=== PATIENT | female | born 1950 | race Caucasian/White ===

== ENCOUNTER → 2017-05-17 | Outpatient (CLI) | payer MEDICARE, BC ==
[~2017-05-17] MED LIST: ALBUTEROL2.5 MG/0.5 INH; ANTIVERT25 MG PO; ATROVENT I0.5 MG/2.5 INH; CARAFATE1 GM PO; CLARITIN10 MG PO; COREG25 MG PO; COZAAR25 MG PO; COZAAR50 MG PO; DEMADEX20 MG PO; FLAGYL250 MG PO; FLONASE 50 MCG/16 GM NOSE; K-TAB ER20 MEQ PO; LANTUS (IN100 UNIT/M SUB-Q; LASIX40 MG PO; MAG-OX-400(241400 MG PO; MIRALAX17 GM PO; MORPHINE SULFAT15 M1 PO; NEURONTIN100 MG PO; NORVASC5 MG PO; NOVOLIN-N100 UNIT/M SUB-Q; OMNICEF 300MG300 MG PO; OXYGEN M-15 INH; PRAVACHOL80 MG PO; PRILOSEC20 M1 PO; PROTONIX40 MG PO; PROVENTIL OR V6.7 GM INH; THEODUR200 MG PO; TYLENOL EXTRA500 MG PO; ULTRAM50 MG PO; ZANTAC (NON-FO150 MG PO; ZOFRAN ODT 4 MG4 MG SL; ZOFRAN4 MG/5 ML PO; ZOLOFT50 MG PO; [UNRECOGNIZED DRUG - OTHER] PO
== END ==
LOC: LFPA 17:13
DX: E11.9 Type 2 diabetes mellitus without complications (principal); R10.9 Unspecified abdominal pain

== ENCOUNTER 2017-06-01 02:59 | Inpatient (IN) | payer MEDICARE, BC ==
[~2017-06-01] VITALS: Ht 170.2 cm; Wt 121.4 kg
--- NOTE | ~2017-06-01 | CON ---
PATIENT'S NAME: JACQUELINE OCAMPO [facility] AGE: 66 Y [address] ROOM: [address] [place], [place] [address] LOCATION: [facility] ADMIT DATE: 06/01/2017 Consultation DISCHARGE DATE: FAMILY PHYSICIAN: PHYSICIAN, UNKNOWN ATTENDING PHYSICIAN: IRENE GARCES REFERRING PHYSICIAN: WILLY MENJIVAR MD CHIEF COMPLAINT: Right thigh and knee pain. HISTORY OF PRESENT ILLNESS: Ms Ocampo is a 66-year-old, female who presented to the [facility] last night with right thigh and knee pain. The patient reports that at approximately 9:00 p.m. last night, she was getting out of the shower and stepped onto a wet tiled floor. She sustained a fall at that time. She complained of immediate right distal thigh and knee pain. She reported inability to bear weight through the limb. She reported the pain as being a 10/10 and severe. She reported crawling to the telephone and called emergency services. She was transferred to the [facility], where she was seen and evaluated. She was diagnosed with a distal femur fracture. She was transferred from that hospital to the [facility] for definitive orthopedic care. Aggravating factors at that time include palpation of the thigh, manipulation of the limb, or attempted weightbearing. Alleviating factors include rest, ice, and immobilization with a knee immobilizer. I was consulted by the emergency room physician at the hospital and I requested that the patient be admitted and medically optimized and cleared for surgery. I have also requested a CT scan of the distal femur. Currently, the patient denies any constitutional symptoms such as fever, chills, or night sweats. She also denies any dizziness, chest pain, shortness of breath, blurred vision, nausea, vomiting, or diarrhea. REVIEW OF SYSTEMS: A 10-point review of systems was otherwise mentioned above in the HPI. The rest are negative. PAST MEDICAL HISTORY: COPD; diabetes mellitus type 2, on insulin; hypertension; chronic kidney insufficiency; congestive heart failure; hypercholesterolemia; and right clubfoot. PAST SURGICAL HISTORY: The patient reports that at , she had surgery on her right foot for history of clubfoot that was corrected surgically. She has had no difficulty with this since childhood. FAMILY HISTORY: PATIENT'S NAME: JACQUELINE OCAMPO [facility] AGE: 66 Y [address] ROOM: [id number] [place], [place] [address] LOCATION: [facility] ADMIT DATE: 06/01/2017 Consultation DISCHARGE DATE: FAMILY PHYSICIAN: PHYSICIAN, UNKNOWN ATTENDING PHYSICIAN: IRENE GARCES Includes hypertension on paternal both maternal sides of the family. SOCIAL HISTORY: The patient denies tobacco or illicit drug use. She consumes alcohol socially. MEDICATIONS: Currently being reconciled. PHYSICAL EXAMINATION: VITAL SIGNS: Pending. HEENT: Normocephalic and atraumatic. Extraocular movements are intact. PERRLA. Moist mucous membranes. Oropharyngeal airway is clear. NECK: Supple. Trachea is in midline. CARDIOVASCULAR: Regular rate and rhythm. CHEST: Normal symmetric respirations observed bilaterally. ABDOMEN: Soft, nontender, and nondistended. MUSCULOSKELETAL: Right lower extremity: Focal examination of the patient's right lower extremity reveals she is grossly neurologically intact distally. Compartments of thigh, leg, and foot are soft. There is swelling at the level of the knee and distal thigh and tenderness to palpation. There is gross deformity with the leg at the knee externally rotated relative to the proximal thigh. There is a palpable dorsalis pedal and radial pulses. There is good capillary refill in the toes. Evidence of a surgical correction to a previous right clubfoot. IMAGING: Plain radiographs of the right femur reveal evidence of a spiral comminuted distal femur fracture that is rotated and angulated. A CT scan of the right femur reveals evidence of a spiral supracondylar femur fracture that extends down to the level of the femoral condyle. There does not appear to be an intra-articular involvement. LABORATORY VALUES: CBC includes a hemoglobin of 15.6, hematocrit of 47.4, white blood cell count of 16.4, and platelet count of 218. Chem-7: Sodium 141, potassium 4.0, chloride 103, CO2 32, BUN 28, creatinine 1.6, glucose 175. The patient reported hemoglobin A1c of 7.5. Coagulation profile is PT of 10.6, INR of 1.01, and PTT of 26. IMPRESSION: 1. Right spiral supracondylar fracture of the femur with displacement and angulation. 2. Diabetes mellitus, on insulin. PATIENT'S NAME: OCAMPO JACQUELINE Miryam [facility] AGE: 66 Y [address] ROOM: [address] [place], [place] [address] LOCATION: G3 ADMIT DATE: 06/01/2017 Consultation DISCHARGE DATE: FAMILY PHYSICIAN: PHYSICIAN, MELINDA ATTENDING PHYSICIAN: IRENE GARCES 3. Hypertension. 4. Chronic obstructive pulmonary disease. 5. Congestive heart failure. 6. Chronic kidney insufficiency. PLAN: I had a long discussion with the patient today regarding her right lower extremity. I am recommending an open reduction and internal fixation of her right supracondylar femur fracture with plate and screw construct. We discussed the risks, benefits, and alternatives of pursuing surgical intervention with the patient in detail. We discussed the risks of anesthesia, infection, bleeding, and/or injury to neurovascular structures. The patient has a host of concomitant medical comorbidities, that has been cleared by the hospitalist. She is certainly at high risk for postoperative complication despite this. Certainly, under the current circumstance, I would recommend treating this nonoperatively as the outcome would be poor. The patient is independent ambulator at baseline and a successful operation would return her to this at baseline. The patient will be nonweightbearing on the right lower extremity for now. A knee immobilizer is provisionally placed to hold the leg still. A Ortiz catheter has also been placed. Pain control will be prescribed. DVT prophylaxis will be mechanical for now. We will plan for surgery as soon as this afternoon. MD DIANNA MONTEIRO/colin /[id number] d: 06/01/1745 t: 06/01/17 0921, CONSULTATION REPORT
--- NOTE | ~2017-06-01 | DS ---
PATIENT'S NAME: JACQUELINE RAI [facility] AGE: 66 Y [address] ROOM: [address] [place], [place] [address] LOCATION: [facility] ADMIT DATE: 06/01/2017 Discharge Summary DISCHARGE DATE: 06/04/2017 FAMILY PHYSICIAN: Ariadna King MD ATTENDING PHYSICIAN: Rodolfo Judd DISCHARGE DIAGNOSES: 1. Right femur fracture, status post open reduction and internal fixation. 2. Essential hypertension. 3. Diabetes mellitus, type 2. 4. Acute kidney injury on chronic kidney disease. 5. Gastroesophageal reflux disease. 6. Chronic obstructive pulmonary disease. 7. Chronic hypoxic respiratory failure. CONSULTING PHYSICIAN: Dr. Krause. HOSPITAL COURSE: Please refer to admitting history and physical as dictated by Dr. Judd. Briefly, the patient was admitted to [facility] after sustaining a fall while at home. She was found to have a right femur fracture. Dr. Krause was consulted for her femur fracture. She was found to have an acute kidney injury with a creatinine of 1.6. Her diuretics were held. She was given IV fluids. This did gradually improve to normal. On the day of discharge, her creatinine was 0.9. The patient's O2 requirements remained stable on 2 L. Her blood sugars were managed with her home NPH as well as sliding scale insulin. Postoperatively, she was made toe-touch weightbearing to the right lower extremity in a knee immobilizer. PT and OT both followed the patient postoperatively. Her hemoglobin remained stable. She did have noted constipation. She was given a Dulcolax suppository which did resolve. Her pain was well controlled with Perrin. On 06/04/2017, it was felt as though she was stable to be transferred to [facility] for further restorative cares. LABORATORY DATA: Sodium remained stable; potassium 4.0 to 4.4; BUN on admit 28, prior to discharge 10; creatinine on admit 1.6, prior to discharge 0.9; total bilirubin 0.9; AST 55; ALT 51; GFR 33 on admit, 67 prior to discharge; and magnesium 2.4. CPK 120, CK-MB 1.1, and troponin is less than 0.040. ProBNP 476. Pre-albumin 38. Hemoglobin A1c is 7.7. WBCs on admit 16.4, prior to discharge 10.3; hemoglobin 12.0 to 15.6; and platelets are 167,000. UA leukocytes 25, nitrites negative, wbc's 0-2, bacteria few, and epithelials 0-2. Radiology Reports: Chest x-ray done on 06/01/2017 shows cardiac silhouette enlargement though accentuated by suboptimal inspiration, no focal infiltrate, pleural effusion, or pneumothorax. Right femur x-ray shows a displaced PATIENT'S NAME: JACQUELINE RAI [facility] AGE: 66 Y [address] ROOM: [address] [place], [place] [address] LOCATION: [facility] ADMIT DATE: 06/01/2017 Discharge Summary DISCHARGE DATE: 06/04/2017 FAMILY PHYSICIAN: Ariadna King MD ATTENDING PHYSICIAN: Rodolfo Judd oblique distal right femur fracture. DISCHARGE INSTRUCTIONS: The patient will be discharged to [facility] bed. Dr. Kan to follow. Followup appointment with Dr. Krause in 2 weeks. Diet; ADA. Weightbearing; toe-touch weightbearing, right lower extremity in a knee immobilizer. Oxygen as needed to keep sats greater than 90% on 2 L chronically, titrate as needed. Accu-Cheks a.c. and bedtime. BMP on 06/06/2017. Urinary catheter, none. Rehabilitation potential good. Discharge potential is good. Change right leg bandage with Xeroform, 4x4 gauze, cast padding, and Riki wrap every 3 days. DISCHARGE MEDICATIONS: 1. Norvasc 5 mg p.o. daily. Hold if systolic blood pressure is less than 110. 2. Coreg 25 mg p.o. twice daily. Hold if systolic blood pressure is less than 110 or heart rate less than 60. 3. Colace 100 mg p.o. twice daily. 4. Lovenox 40 mg subcutaneous daily until 06/16/2017. 5. Flonase 2 puffs daily. 6. Neurontin 100 mg p.o. t.i.d. 7. Novolin N 25 units subcutaneous at bedtime. 8. Novolin N 30 units q.a.m. 9. Protonix 40 mg p.o. twice daily. 10. Pravachol 80 mg p.o. at bedtime. 11. Zoloft 75 mg p.o. daily. 12. Tylenol 500 mg p.o. every 4 hours as needed for pain. 13. Mylanta 30 mL p.o. 4 times daily p.r.n. upset stomach. 14. Glucagon 1 mg subcutaneous for hypoglycemia. 15. Glucose 16 g p.o. for hypoglycemia. 16. Claritin 10 mg p.o. twice daily p.r.n. allergies. 17. Milk of magnesia 30 mL p.o. p.r.n. constipation. 18. Zofran 4 mg sublingual 4 times daily p.r.n. nausea. 19. MiraLAX 17 g p.o. daily p.r.n. 20. Potassium 40 mEq on Wednesday, Wednesday, and Wednesday for hypokalemia. 21. Albuterol 1 puff every 4 hours as needed for shortness of breath. 22. Albuterol inhaler 4 times daily p.r.n. 23. Demadex 40 mg p.o. daily. Hold if systolic blood pressure is less than 120. 24. Oxygen. 25. Cozaar 50 mg p.o. twice daily. 26. Perrin 5/325, 1 or 2 tablets every 4 to 6 hours as needed for pain. Thank you for allowing us to participate in the care of this patient as she has been hospitalized at [facility]. PATIENT'S NAME: JACQUELINE RAI [facility] AGE: 66 Y [address] ROOM: [place] [address] LOCATION: [facility] ADMIT DATE: 06/01/2017 Discharge Summary DISCHARGE DATE: 06/04/2017 FAMILY PHYSICIAN: Ariadna King MD ATTENDING PHYSICIAN: Rodolfo Judd BRUNO FRANCIS APRN FOR MD ANNY PANDYA/colin /[id number] d: 06/05/17 0106 t: 06/09/17 1116, DISCHARGE SUMMARY
--- NOTE | ~2017-06-01 | ER ---
PATIENT'S NAME: JACQUELINE RAI [facility] AGE: 66 Y [address] ROOM: [place] [address] LOCATION: [facility] ADMIT DATE: 06/01/2017 ER/Outpatient Report DISCHARGE DATE: FAMILY PHYSICIAN: PHYSICIAN, UNKNOWN ATTENDING PHYSICIAN: IRENE GARCES Time of Arrival: 0303 hours Time Seen: 0315 hours HISTORY OF PRESENT ILLNESS: This is a 66-year-old female with multiple medical problems. She is in with complaint of a femur fracture. She was initially seen at the hospital in [place] and was transferred for further evaluation and treatment. PAST MEDICAL HISTORY: Significant for peripheral neuropathy, congestive heart failure, insulin- dependent diabetes, COPD, hypertension. She has Charcot joints in her ankles and feet. She has had multiple previous orthopedic procedures performed by Dr. Arana. CURRENT MEDICATIONS: See list. REVIEW OF SYSTEMS: She states she has had a slight cough for the past few days. All other systems are negative. SOCIAL HISTORY: She is a nonsmoker. She lives in [place]. PHYSICAL EXAMINATION: GENERAL: Alert, cooperative female, in no acute distress. VITAL SIGNS: Stable. SKIN: Warm and dry. Color is normal. She was mildly hypertensive. HEAD, EARS, EYES, NOSE, AND THROAT: Normal. NECK: Supple. HEART AND LUNGS: Normal. ABDOMEN: Soft. EXTREMITIES: She had swelling and tenderness noted of her right thigh. NEURO: Distal neurovascular function is intact. LABORATORY DATA AND X-RAYS: Radiographic examination confirmed an oblique fracture of the distal right femur. Tib-fib was negative for acute injury. [place] [id number]. Urinalysis was negative. Metabolic panel revealed PATIENT'S NAME: JACQUELINE RAI [facility] AGE: 66 Y [address] ROOM: [address] [address] LOCATION: [facility] ADMIT DATE: 06/01/2017 ER/Outpatient Report DISCHARGE DATE: FAMILY PHYSICIAN: PHYSICIAN, UNKNOWN ATTENDING PHYSICIAN: IRENE GARCES elevated glucose of 175. BUN slightly elevated at 28. Creatinine slightly elevated at 1.6. AST slightly elevated at 55. Dr. Garces was called, arrived promptly, evaluated the patient, made arrangements to admit the patient. The orthopedist was consulted. ASSESSMENT: 1. Oblique fracture of the right distal femur. 2. Multiple medical problems including diabetes, congestive heart failure, chronic obstructive pulmonary disease, appeared to be under reasonably good control. PLAN: Admit for medical stabilization and surgical management of her fracture. MD EHSAN TREVIÑO/greggl /[id number] d: 06/01/17 0548 t: 06/17/17 0550, OUTPATIENT REPORT
--- NOTE | ~2017-06-01 | HP ---
PATIENT'S NAME: JACQUELINE RAI [facility] AGE: 66 Y [address] ROOM: [id number] [place], [place] [address] LOCATION: G3N ADMIT DATE: 06/01/2017 History & Physical DISCHARGE DATE: FAMILY PHYSICIAN: PHYSICIAN, UNKNOWN ATTENDING PHYSICIAN: IRENE GARCES DATE OF SERVICE: CHIEF COMPLAINT: Right hip pain, status post mechanical fall. HISTORY OF PRESENT ILLNESS: This is a 66-year-old female who says that she was at shower last night and when she stepped out of the shower, the floor was wet and she accidentally slipped and fell on the ground. She fell backwards sitting her gluteus was on the ground without hitting her head and there was no loss of consciousness or any head trauma. After the fall, she had this pain in her right hip, and she could not get up. The patient was able to cross to use the telephone and called her , her called her son and her son came to the house and call the ambulance, and the patient was brought to the outside facility in [place] and the patient was found to have a right hip fracture and the patient was subsequently sent over here for further care. At baseline, the patient is functional by herself at home and however, she does complain of dyspnea on exertion when she walked one block. This has been chronic, and she says that this has not worsened much compared to her usual baseline. She denies any chest pain on exertion or at rest. She also denies any dyspnea at rest. She can perform house chores without chest pain or shortness of breath. Her METS score is around 4. The patient denies any prior myocardial infarction or atrial fibrillation or any pulmonary or surgery in the past. Her current complaint is right hip pain after the fall. She denies any chest pain or dyspnea at rest at the moment. The patient is also not on any blood thinner at home. REVIEW OF SYSTEMS: As mentioned in the history of present illness. All other systems were reviewed and were negative except those mentioned in the history of present illness. PAST MEDICAL HISTORY: 1. History of congestive heart failure based on the most recent [facility]horacic [facility] the [facility] 2013. At that time, it showed grade 3 diastolic dysfunction with EF of 40% to 50%. 2. Hypertension. 3. Hyperlipidemia. PATIENT'S NAME: JACQUELINE RAI [facility] AGE: 66 Y [address] ROOM: [id number] [place], [place] [address] LOCATION: [facility] ADMIT DATE: 06/01/2017 History & Physical DISCHARGE DATE: FAMILY PHYSICIAN: PHYSICIAN, UNKNOWN ATTENDING PHYSICIAN: IRENE GARCES 4. COPD, on 2 L nasal cannula 24/05. 5. Asthma. 6. Gastroesophageal reflux disease. 7. Diabetes, type 2. 8. Flatfeet. ALLERGIES: PENICILLIN, QUINOLONE, ERYTHROMYCIN, LEVAQUIN, AND ROSUVASTATIN . HOME MEDICATIONS: 1. Tylenol 500 mg p.o. every 4 hours p.r.n. for pain or fever. 2. Albuterol inhalation one puff every 4 hours p.r.n. for shortness of breath or wheezing. 3. Albuterol inhalation 2.5 mg inhalation 4 times daily p.r.n. for shortness of breath or wheezing. 4. Aluminium and magnesium hydroxide simethicone 30 mL p.o. four times daily p.r.n. for GI upset. 5. Amlodipine 5 mg p.o. daily. 6. Coreg 25 mg p.o. b.i.d. 7. Fluticasone two puffs each nose daily. 8. Gabapentin 100 mg p.o. t.i.d. 9. Insulin NPH 53 units subcu every night at bedtime. 10. Insulin NPH 63 units subcu every morning. 11. Claritin 10 mg p.o. b.i.d. p.r.n. for allergy. 12. Losartan 50 mg p.o. daily. 13. Morphine sulfate 15 mg p.o. every night at bedtime p.r.n. for pain. 14. Zofran 4 mg p.o. every 6 hours p.r.n. for nausea. 15. Oxygen 2 L nasal cannula 24/05. 16. Protonix 40 mg p.o. b.i.d. 17. MiraLAX 17 g p.o. daily p.r.n. for constipation. 18. Potassium chloride 40 mEq p.o. every Wednesday, Wednesday, and Wednesday. 19. Pravastatin 80 mg p.o. every night at bedtime. 20. Zoloft 75 mg p.o. daily. 21. Torsemide 40 mg p.o. daily. SOCIAL HISTORY: The patient denies any cigarette smoking, but she got COPD from secondhand smoker from her father who was a heavy smoker for many years. The patient denies any alcohol or any illegal drug use. The patient lives at home by herself. PAST SURGICAL HISTORY: 1. Status post appendectomy. 2. Status post cholecystectomy. 3. Status post left wrist surgery in the past. PATIENT'S NAME: JACQUELINE RAI [facility] AGE: 66 Y [address] ROOM: [id number] [place], [place] [address] LOCATION: [facility] ADMIT DATE: 06/01/2017 History & Physical DISCHARGE DATE: FAMILY PHYSICIAN: PHYSICIAN, UNKNOWN ATTENDING PHYSICIAN: IRENE GARCES 4. Status post right tarsal tunnel release. 5. Ostectomy of the medial and the mid foot at left in the past. FAMILY HISTORY: Father had hypertension and lung cancer. He was a heavy smoker. He at old age. Mother had hypertension. PHYSICAL EXAMINATION: VITAL SIGNS: At the time of my evaluation, temperature 98.5, heart rate 63, respirations 13, blood pressure 116/60, saturation 94% on 2 L nasal cannula. GENERAL APPEARANCE: Alert and oriented x3. Currently, in no acute distress. HEENT: Pupils equal, round, and reactive to light. Extraocular muscles intact. Anicteric sclerae. Nasal turbinates are normal bilaterally. Moist oral mucosa. NECK: No JVD. CARDIOVASCULAR: Regular rate and rhythm. No murmur, no rubs, no gallops. Normal S1, S2. RESPIRATORY: Some faint crackle on the right lower lung base. Otherwise, no rhonchi, no wheezing, no rales. Chest wall nontender to palpation. ABDOMEN: Obese, soft, mild pain in the right upper quadrant which is chronic for many years. It has not changed. No mass. Bowel sounds present. No abdominal rigidity. Bowel sounds present. Soft. Nondistended. EXTREMITIES: Mild pitting edema +1 in bilateral lower extremity. This is much better than her usual baseline. Dorsalis pedis pulse and posterior tibialis pulse present +2 bilaterally in both feet. SKIN: No cyanosis. She has some healed-looking skin ulcer in both feet. There is no drainage and the ulcer looks healed and dry. NEUROLOGICAL: Grossly nonfocal except that the right lower extremity is not examined about her strength given that she has a fracture. Sensation decreased in both feet. This is chronic for her due to her peripheral neuropathy from her diabetes, type 2. Otherwise unremarkable. LABORATORY DATA: CPK 120, troponin less than 0.04. ProBNP 476. White blood cells 16.4, hemoglobin 15.6, hematocrit 47.4, platelet 218, glucose 175, BUN 28, creatinine 1.6. Sodium 142, potassium 4.0, chloride 103, CO2 of 32, calcium 8.8, total protein 6.9, albumin 3.4, AST 55, ALT 51, alkaline phosphatase 122, total bilirubin 0.9, anion gap 11, globulin 3.5. INR 1.01. PTT 26. Urinalysis show 25 leukocytes, negative nitrite, 0-2 white blood cells, and a few bacteria. GFR 33. CK-MB 1.1. Pre-albumin 38. IMAGING STUDIES: CT of the right proximal lower extremity currently is being taken and the report is pending. PATIENT'S NAME: JACQUELINE RAI [facility] AGE: 66 Y [address] ROOM: [place] [address] LOCATION: [facility] ADMIT DATE: 06/01/2017 History & Physical DISCHARGE DATE: FAMILY PHYSICIAN: PHYSICIAN, UNKNOWN ATTENDING PHYSICIAN: IRENE GARCES Chest x-ray on admission, the official report is pending based on my review. No obvious infiltrate. However, please follow up with official report in the morning. X-ray of the right lower extremity show right femur fracture. EMERGENCY ROOM COURSE: The patient was transferred from [place], [place] to our facility and the patient will be admitted for orthopedic care for right hip fracture. ASSESSMENT AND PLAN: 1. Regarding her right femur fracture status post mechanical fall: Defer to Orthopedic Surgery for orthopedic care. 2. Regarding her preoperative medical evaluation for noncardiac surgery: Orthopedic surgery is considered as an intermediate risk surgery. From the guideline of the preoperative medical evaluation for noncardiac surgery, the patient currently does not have any active cardiac contraindication that will warrant further study before the orthopedic surgery. However, given that her METS score is around 4 and also however, due to her multiple medical comorbidities and her age including hypertension and diabetes and history of systolic and diastolic congestive heart failure as well as COPD on 2 L of oxygen nasal cannula 24/05 and asthma; the patient has a high risk for perioperative and postoperative cardiopulmonary complications. The complications could include but not limited to heart failure during the fluid hydration, during surgery, and may remain intubated in ICU after surgery due to inability to extubate due to her pulmonary status as well as other cardiopulmonary complications due to multiple comorbidities. However as mentioned before, from the guideline for preoperative medical evaluation, currently the patient does not have any active cardiac contraindication that will require any additional testing before going for the Orthopedic Surgery. I have explained in detail and at length to the patient and the patient's son at the bedside regarding the possibility of this possible complications and the patient, the patient's son are aware of this possible complication and agreed to proceed with surgery. 3. Regarding her acute kidney injury: This is from decreased oral intake, given that her urine looks concentrated and also because she has hemoconcentration on the blood work and BUN and both creatinine are elevated and due to her history of recent decreased oral intake, this is from the use of a torsemide that caused the acute kidney injury. For this reason, I am going to give her gentle IV fluid hydration with normal saline at 60 mL/h to hydrate her gently given that she has history of congestive heart failure, we do not want to put her into heart failure. I will check another renal panel in the morning to make sure the kidney function is improving. She has a Ortiz; therefore, we will continue with PATIENT'S NAME: JACQUELINE RAI [facility] AGE: 66 Y [address] ROOM: [place] [address] LOCATION: [facility] ADMIT DATE: 06/01/2017 History & Physical DISCHARGE DATE: FAMILY PHYSICIAN: PHYSICIAN, UNKNOWN ATTENDING PHYSICIAN: IRENE GARCES in's and out's and also urine output. Further plan will depend on clinical course and of course, I will hold the home medication that can worsen the kidney function which include losartan and torsemide. Further plan will depend on clinical course. 4. Regarding her history of congestive heart failure, systolic and diastolic type: Currently, the patient is over-diuresed as mentioned before in #3. For this reason, I will continue oxygen nasal cannula to titrate to keep the saturation more than 92% as well as IV fluid hydration as mentioned before. Further plan will depend on clinical course. Her most recent echo was done on 2013. At that time, it showed grade 3 diastolic dysfunction with EF of 40% to 50%. 5. Regarding her hypertension: Continue home medication with holding parameters which includes amlodipine and Coreg. I will hold the losartan due to the acute kidney injury. 6. Regarding her diabetes, type 2: We will check her hemoglobin A1c and as well we will continue with the home regimen. However, I will cut down by half which includes insulin NPH 53 units every night, I will cut down to 25 units every night and also insulin NPH 63 units every morning, I will cut down to 30 units every morning. We can titrate as necessary. In the meantime, continue with subcu regular insulin q.6 hours while n.p.o. low dose and titrate as necessary. N.p.o. for now. Pending orthopedic surgery. 7. Regarding her chronic obstructive pulmonary disease: She has 2 L at home nasal cannula 24/05. That is why she is at a high pulmonary complication during and after surgery, given that there is a possibility that she cannot be extubated successfully after surgery. The patient understands this risk and understands that she may end up in ICU intubated until appropriate to be extubated. I will give her DuoNeb right now one dose and then q.4 hours p.r.n. Continue her home albuterol p.r.n. as ordered. Currently, she is not in exacerbation, but the DuoNeb will optimize even more her already affected lung function at baseline. 8. Regarding her asthma: I will set a chronic obstructive pulmonary disease management as above. 9. Regarding her hyperlipidemia: Continue home statin. 10. Regarding her gastroesophageal reflux disease: Continue the home medication for acid reflux protection. 11. Regarding her diabetes, type 2: Check A1c. Continue home insulin regimen, but cut off by half the long-acting intermediate acting NPH and in addition add subcutaneous regular insulin q.6 hours while n.p.o., mild dose and titrate as necessary. 12. Regarding her foot ulcers on both feet: They look heal and do not look infected. I do not think the wound care should be consulted given that there is not much to do for those healed ulcer. 13. She is a DNR, but not DNI. 14. DVT prophylaxis: Foot pump for now before the orthopedic surgery. PATIENT'S NAME: JACQUELINE RAI [facility] AGE: 66 Y [address] ROOM: [address] [address] LOCATION: [facility] ADMIT DATE: 06/01/2017 History & Physical DISCHARGE DATE: FAMILY PHYSICIAN: PHYSICIAN, UNKNOWN ATTENDING PHYSICIAN: IRENE GARCES Time spent in care on the day of admission 40 to 50 minutes was spent on chart review. The remainder of time was spent on interview and physical examination and going over the plan of care in detail with the patient and patient's son at the bedside. At this time also includes counseling. The counseling includes explaining all the possible cardiopulmonary complication during and after the surgery and all the risk that could happen during surgery due to her multiple comorbidities, and I addressed all the questions and concerns to their satisfaction. Further plan will depend on clinical course. IRENE GARCES MD CC/modl /[id number] D: 907 T: 100 HISTORY & PHYSICAL
--- NOTE | ~2017-06-01 | OR ---
PATIENT'S NAME: JACQUELINE OCAMPO [facility] AGE: 66 Y [address] ROOM: [place] [address] LOCATION: [facility] ADMIT DATE: 06/01/2017 OR/Procedure Report DISCHARGE DATE: FAMILY PHYSICIAN: PHYSICIAN, UNKNOWN ATTENDING PHYSICIAN: IRENE GARCES SURGEON: Kishor Krause MD UNDERWRITER [employer]ICITATION DIRECTOR: Gaston andre PA-C. DATE OF PROCEDURE: 06/01/2017 PREOPERATIVE DIAGNOSIS: Right spiral supracondylar fracture of the distal femur. POSTOP DIAGNOSIS: Right spiral supracondylar fracture of the distal femur. PROCEDURE: 1. Open reduction and internal fixation of right spiral supracondylar fracture of the distal femur. 2. Use of intraoperative fluoroscopy, less than 1 hour. ANESTHESIA: General endotracheal anesthesia. ESTIMATED BLOOD LOSS: 350 mL. FLUIDS: See Anesthesia report. TOURNIQUET: None. SPECIMEN: None. COMPLICATIONS: None. DISPOSITION: Stable in PACU. COUNTS: All counts correct. IMPLANTS: Include Synthes right distal femur periarticular locking plate and screws. INDICATIONS: Ms Ocampo is a 66-year-old female who underwent the noted procedures above. The risks, benefits, and alternatives pursuing surgical intervention were discussed with the patient in detail. She elected proceed with surgery. Anesthesia was consulted for their perioperative evaluation of the patient. I marked the right lower extremity indicating the correct surgical site. PATIENT'S NAME: JACQUELINE OCAMPO [facility] AGE: 66 Y [address] ROOM: [place] [address] LOCATION: [facility] ADMIT DATE: 06/01/2017 OR/Procedure Report DISCHARGE DATE: FAMILY PHYSICIAN: PHYSICIAN, UNKNOWN ATTENDING PHYSICIAN: IRENE GARCES DESCRIPTION OF PROCEDURE: The patient was brought from the holding area the operating room. A time-out was performed. General endotracheal anesthesia was administered. The patient was positioned supine on the operating room table. The right lower extremity was then prepped and draped in a sterile fashion. I turned my attention the right distal femur. I introduced intraoperative fluoroscopy. I identified the fracture site. I made a surgical incision, access the lateral aspect of the distal femur at the level of the knee. The skin incision was carried through skin, subcutaneous tissue, muscle fascia down to bone. I freed up the soft tissues off the distal femur. I identified the fracture site. With my assistant professor sculpture, Gaston Arana PA-C, we placed traction to perform provisional reduction. I confirmed this fluoroscopically. I subsequently introduced a plate to the lateral aspect of the femur. I pinned the plate both proximally and distally to achieve some provisional fixation. A López clamp was introduced at the level of the fracture site to reduce the plate to the bone and to bring the spiral fracture into a close proximity. I achieved a near anatomic reduction in both the AP and lateral planes. I then turned my attention to the distal aspect of the plate. I drilled for, measured, and placed a compression screw to compress the distal aspect of the plate to the lateral aspect of the distal femur. I did achieve good compression of the plate to the bone. I then drilled for, measured, and placed a fixed angle locking screws to achieve multiple points of fixation distal to the fracture site. Once the distal fracture fixation was achieved, I turned my attention to the proximal femur. I drilled for, measured, and placed a compression screw in the proximal to the fracture site to reduce the plate to the bone proximally. I then drilled for, measured, and placed multiple screws proximal to the fracture site, although these were locking screws to establish fixed angle fixation The López clamp was removed and my assistant professor sculpture released the traction. I confirmed a near anatomic open reduction and internal fixation of right supracondylar spiral distal femur fracture. The knee was taken through range of motion and deemed stable. Again, the reduction and fixation were fluoroscopically assessed in multiple planes and deemed stable. The surgical incision distally was copiously irrigated with normal sterile saline solution closed in layers. The percutaneous screw holes that were made proximally were copiously irrigated and also closed in layers. Grayling were placed for the skin. A sterile Mepilex dressing was placed over the surgical incisions. PATIENT'S NAME: JACQUELINE OCAMPO [facility] AGE: 66 Y [address] ROOM: [address] [place], [place] [address] LOCATION: [facility] ADMIT DATE: 06/01/2017 OR/Procedure Report DISCHARGE DATE: FAMILY PHYSICIAN: PHYSICIAN, UNKNOWN ATTENDING PHYSICIAN: IRENE GARCES The patient was then transferred from the operating table onto the stretcher and extubated. She was brought to the recovery room in stable condition. There were no intraoperative complications noted. Of note, my PA, Gaston Arana PA-C, played an integral role in the intraoperative care of this patient. This included preoperative positioning, intraoperative expert retraction, and closing and dressing functions. IMPRESSION: The patient is status post noted procedure above. PLAN: The patient will be toe-touch weightbearing on the right lower extremity. Postoperative antibiotics will be administered per routine. The hospitalist team to manage the patient's concomitant medical comorbidities. Physical Therapy and Occupational Therapy will consult for early ambulation and prevention of deconditioning. She was started on Lovenox for DVT prophylaxis on postoperative day #1. We will continue to monitor the patient closely in the postoperative period. MD DIANNA MONTEIRO/colin /[id number] d: 06/01/171920 t: 06/02/17 1004, OPERATIVE SUMMARY
--- NOTE | ~2017-06-01 | HP ---
PATIENT'S NAME: JACQUELINE RAI [facility] AGE: 66 Y [address] ROOM: [place] [address] LOCATION: [facility] ADMIT DATE: 06/01/2017 History & Physical DISCHARGE DATE: FAMILY PHYSICIAN: PHYSICIAN, UNKNOWN ATTENDING PHYSICIAN: IRENE GARCES DATE OF SERVICE: ADDENDUM: EKG on admission, on June 01, 2017, at 4:23 a.m. shows sinus rhythm with heart rate of 62 beats per minutes. Q-wave in the inferior leads. No acute ischemic changes. Cardiac enzymes are normal at the first set. The patient denies any chest pain. PA of 196 milliseconds. QRS of 109 milliseconds. QTc of 445 milliseconds. MD DONYA YUSUF/colin /[id number] D: [id number] T: [id number] HISTORY & PHYSICAL
[~2017-06-01 02:59] MED LIST changes: -COZAAR50 MG PO; -DEMADEX20 MG PO; -MIRALAX17 GM PO; -MORPHINE SULFAT15 M1 PO; -NORVASC5 MG PO; -NOVOLIN-N100 UNIT/M SUB-Q; -OXYGEN M-15 INH; -PROVENTIL OR V6.7 GM INH
[2017-06-01 03:28] LABS: BASOPHIL # 0.1 K/uL (0.0-0.2); BASOPHIL % 0.4 %; EOSINOPHIL # 0.3 K/uL (0.0-0.5); EOSINOPHIL % 1.8 %; HEMATOCRIT 47.4 % (33.0-46.0); HEMOGLOBIN 15.6 g/dL (10.0-15.0); IMMATURE GRANULOCYTE # 0.1 K/uL (0.0-0.3); IMMATURE GRANULOCYTE % 0.4 %; LYMPHOCYTE # 2.5 K/uL (0.8-4.0); LYMPHOCYTE % 15.5 %; MCHC 32.9 gm/dL (32.0-36.5); MONOCYTE % 6.2 %; MPV 11.1 fl (9.4-12.4); NEUTROPHIL # (ANC) 12.4 K/uL (1.8-7.8); NEUTROPHIL % 75.7 %; NRBC % 0 /100WBC (0-0.00); PLATELET COUNT 218 K/uL (150-450); RBC 5.04 M/uL (3.50-5.50); RDW-CV 13.6 % (11.9-14.6)
[2017-06-01 03:29] LABS: WBC 16.4 K/uL (4.0-11.0)
[2017-06-01 03:38] LABS: INR - (THERAPEUTIC) 1.01 (0.92-1.07); PROTIME 10.6 SECONDS (9.8-11.4); PTT 26 SECONDS (25-32)
[2017-06-01 03:45] LABS: ALBUMIN 3.4 gm/dL (3.5-5.0); CALCIUM 8.8 mg/dL (8.5-10.5); CREATININE 1.6 mg/dL (0.5-1.1); TOTAL BILIRUBIN 0.9 mg/dL (0.0-1.5); TOTAL PROTEIN 6.9 g/dL (6.0-8.4)
[2017-06-01 04:13] LABS: BLOOD URINE 150 /UL (NEGATIVE); COLOR URINE YELLOW (YELLOW); GLUCOSE URINE NEGATIVE (NEGATIVE); KETONE URINE 5 mg/dL (NEGATIVE); LEUKOCYTES URINE 25 /UL (NEGATIVE); NITRITE URINE NEGATIVE (NEGATIVE); PROTEIN URINE 30 mg/dL (NEGATIVE); TURBIDITY URINE CLEAR (CLEAR); UROBILINOGEN URINE 4 mg/dL (NORMAL)
[2017-06-01 04:34] LABS: BACTERIA URINE FEW (NEGATIVE); EPITHELIAL URINE 0-2 #/HPF (NEGATIVE); WBC URINE 0-2 #/HPF (NEGATIVE)
[2017-06-01 04:44] LABS: CPK 120 IU/L (21-215)
--- NOTE | 2017-06-01 04:57 | NUR ---
Patient slipped in the shower at home around 2129. States she dragged her self out to the phone to call for help. She is alert and oriented x 3. Diabetic with neuropathy to feet. Oxygen dependent due to COPD. Has a history of CHF. Saline lock to right hand.
[2017-06-01] MEDS ORDERED: NORVASC5 MG PO (06:14)
[2017-06-01] MEDS ORDERED: PROVENTIL OR V6.7 GM INH (06:14)
[2017-06-01] MEDS ORDERED: DEMADEX20 MG PO (06:15)
[2017-06-01] MEDS ORDERED: NOVOLIN-N100 UNIT/M SUB-Q ×2 (06:16)
[2017-06-01] MEDS ORDERED: MORPHINE SULFAT15 M1 PO (06:17)
[2017-06-01] MEDS ORDERED: OXYGEN M-15 INH (06:18)
[2017-06-01] MEDS ORDERED: COZAAR50 MG PO (06:41)
[2017-06-01] MEDS ORDERED: MIRALAX17 GM PO (06:43)
[2017-06-01 18:44] LABS: HEMATOCRIT 40.6 % (33.0-46.0); HEMOGLOBIN 13.2 g/dL (10.0-15.0)
--- NOTE | 2017-06-01 19:11 | NUR ---
PATIENT DOING WELL. RETURNED FROM PACU AT 1520. CSM ADEQUATE. UNABLE TO FEET PULSE TO RIGHT FOOT BECAUSE OF DRESSING. TOES COOL TO TOUCH, WIGGLES AND SHAHNAZ. JOSE ROBERTO WRAP D/I TO RIGHT FEMUR, IMMOBILIZER INTACT. NORCO LAST AT 1750. MACHADO INTACT. VSS. O2 AT 2L/MIN AT HOME TO KEEP SATS ABOVE 90%. EZ WRAP INTACT.
--- NOTE | 2017-06-02 04:56 | NUR ---
Shift Summary: Patient had Morphine 2mg IV and a norco at 0118. Stood her at the bedside last night. Was able to stand and maintain TTWB to right leg. Right leg in an immobilizer. Have kept it elevated and with an ice pack all shift. Patient has penny cath that needs removed this morning. She had 400ml out with hernan clear urine. Tolerating ADA diet well. On 2L O2 at all times for her COPD. Accuchecks AC&HS.
[2017-06-02 05:30] LABS: BASOPHIL # 0.1 K/uL (0.0-0.2); BASOPHIL % 0.5 %; EOSINOPHIL # 0.4 K/uL (0.0-0.5); EOSINOPHIL % 3.6 %; HEMATOCRIT 37.4 % (33.0-46.0); IMMATURE GRANULOCYTE # 0.1 K/uL (0.0-0.3); IMMATURE GRANULOCYTE % 0.6 %; LYMPHOCYTE # 1.7 K/uL (0.8-4.0); LYMPHOCYTE % 16.9 %; MCH 30.5 pg (27.0-34.0); MCHC 32.1 gm/dL (32.0-36.5); MCV 95.2 fl (83.0-98.0); MONOCYTE # 0.9 K/uL (0.0-1.0); MONOCYTE % 8.5 %; MPV 10.9 fl (9.4-12.4); NEUTROPHIL # (ANC) 7.2 K/uL (1.8-7.8); NEUTROPHIL % 69.9 %; NRBC % 0 /100WBC (0-0.00); RBC 3.93 M/uL (3.50-5.50); RDW-CV 13.7 % (11.9-14.6); WBC 10.3 K/uL (4.0-11.0)
[2017-06-02 05:33] LABS: PLATELET COUNT 167 K/uL (150-450)
[2017-06-02 05:44] LABS: ANION GAP 9.2 (10.0-19.0); CREATININE 1.2 mg/dL (0.5-1.1); POTASSIUM 4.2 mMol/L (3.7-5.1)
--- NOTE | 2017-06-02 09:55 | NUR ---
Introduced self/role to patient and her son Humphrey #[phone]. Their hope for rehab would be that she can go to the [facility]. Second choice would be [facility]. Talked about transportation. Explained that if she went by ambulance and we felt it medically appropriate would fill out paperwork to submit to Medicare but can not guarantee payment. They voiced understanding. Added my name to her marker board. 1045 Message left for Suzette at [facility]. 1130 Suzette called back and left a message to go a head and send referral to #[phone]. 1230 referral sent. 1330 Suzette called and wanted to know what doctor patient wanted. Patient had no preference, named the 2 she was familiar with. Still need to fax therapy notes but not dictated yet. 1415 Faxed therapy evals to Suzette.
--- NOTE | 2017-06-02 16:25 | NUR ---
Significant Event: PT ALERT AND ORIENTED. UP WITH 2 WITH PHYSICAL THERAPY BUT LIFT USED TO TRANSFER BACK TO BED. ICE TO RT LEG. IMMOBILIZER ON. NORCO FOR PAIN. IV MORPHINE GIVEN X 1. UNSURE OF DISCHARGE DATE. Follow up:
--- NOTE | 2017-06-03 03:16 | NUR ---
Significant Event: Dressing is clean, dry and intact. CSM-feet are numb, patient states that this is not new. Full lift. TTWB. Ortiz catheter. Accu check. Immobilizer to R) leg. [place] at 0205. On 2 L of oxygen nasal cannula. Follow up:
--- NOTE | 2017-06-03 09:40 | NUR ---
Suzette called and they will take patient, but needs a med list today as pharmacy is closed tomorrow. Let Shasha Astrid know this, she has almost finished the meds but Dr Araiza needs to complete later this afternoon. Spoke to Shasha-PT, thinks patient should go by ambulance as requires a immobilizer and the length of the trip, Shasha Resendiz completed ambulance cert. 1030 Fransisca - Exercise Manager called EMS and spoke to Alma to set up transport for 1000 tomorrow. 1045 Faxed meds to Suzette with note they were not totally complete yet. Also that patient will need a trapeze. [address] Krause, he saw no problems with discharge plans. Placed note on the chart with discharge plans. Updated charge nurse Alma and nurse number placed on the chart. 1355 Suzette called and meds looked fine. Accepting doctor will be Dr. Kan. If doc to doc is done today needs to call #[phone] or if tomorrow before 0900 would be #[phone]. 1445 Called Gaston, Dr. Krause will call now, gave him number. Called patients son Humphrey #[phone] to update. Charge nurse Alma is following up on code status.
--- NOTE | 2017-06-03 16:44 | NUR ---
Significant Event: pt alert and oriented. up in the recliner this shift this morning. back to bed after lunch. dulcolax supp given and had a large bm . no diarrhea. out of isolation, no stool sent. penny removed at 1400. no void yet. norco given at 1630. pt transfers with 1-2 assist with some difficulty. have bed close to chair. transfer per ambulance to [facility] bed tomorrow at 1000. family in the room this afternoon. Follow up:
--- NOTE | 2017-06-04 04:19 | NUR ---
Pt up 2 assist to commode. Pt is going to [facility] today at 1000. TTWB to right leg. Immobilizer on at all times. [place] for pain last at 0200. Pt had bm yesterday. Pt would like something for nausea before leaving this morning for car sickness. Pt on 2L all the time. Accuchecks. CSM intact.
[2017-06-04 06:28] LABS: ANION GAP 10.4 (10.0-19.0); CALCIUM 8.9 mg/dL (8.5-10.5); CREATININE 0.9 mg/dL (0.5-1.1); POTASSIUM 4.4 mMol/L (3.7-5.1)
--- NOTE | 2017-06-04 08:10 | NUR ---
Vibha let me know they attempted the doc call yesterday but had to leave a message. [phone] called Sridevi in EMS to clarify patients code status from yesterday. Per the computer and charge Mishel - status DNR but can intubate [phone] Sridevi with EMS called to see if we could push back the time to wait for [facility]? I asked that we used a different company and proceeded with 1000 discharge. 1000 Faxed orders to #[phone]
--- NOTE | 2017-06-04 09:56 | NUR ---
Transfer Note: Transfers with 1-2 assist, walker and gaitbelt. Maintains TTWB to R) leg. Immobilizer and ice to R) leg at all times. Dressing C/D/I. Voids without difficulty. Last BM yesterday. Zofran IVP at 0730 for C/O nausea, denies since. [place] last at 0945. Accuchecks ACHS. Numbness/tingling to bilateral feet from neuropathy, patient reports no changes since admission. O2 at 2L per nasal cannula.
== END 2017-06-04 10:47 | disposition swing bed (61) | DRG 481 ==
LOC: GACC 02:59 → G3N 04:31
PROVIDERS: Emergency Medicine; Nurse Practitioner Family; Orthopaedic Surgery Adult Reconstructive Orthopaedic Surgery; ADMIT Internal Medicine
PROC: 0QSB04Z Reposition Right Lower Femur with Internal Fixation Device, Open Approach (ICD-10-PCS; principal; 2017-06-01)
DX: S72.451A Displaced supracondylar fracture without intracondylar extension of lower end of right femur, initial encounter for closed fracture (principal); I13.0 Hypertensive heart and chronic kidney disease with heart failure and stage 1 through stage 4 chronic kidney disease, or unspecified chronic kidney disease; N17.9 Acute kidney failure, unspecified; J96.11 Chronic respiratory failure with hypoxia; I50.42 Chronic combined systolic (congestive) and diastolic (congestive) heart failure; Z68.41 Body mass index [BMI] 40.0-44.9, adult; W18.30XA Fall on same level, unspecified, initial encounter; Y92.012 Bathroom of single-family (private) house as the place of occurrence of the external cause; E11.22 Type 2 diabetes mellitus with diabetic chronic kidney disease; N18.9 Chronic kidney disease, unspecified; Z79.4 Long term (current) use of insulin; E78.5 Hyperlipidemia, unspecified; J44.9 Chronic obstructive pulmonary disease, unspecified; Z99.81 Dependence on supplemental oxygen; K21.0 Gastro-esophageal reflux disease with esophagitis; Z66 Do not resuscitate; Q66.89 Other specified congenital deformities of feet; Z88.8 Allergy status to other drugs, medicaments and biological substances; E66.01 Morbid (severe) obesity due to excess calories; K52.9 Noninfective gastroenteritis and colitis, unspecified; K59.00 Constipation, unspecified
CPT/HCPCS: C1713; J1650; J2001; J2270; J2405; J3010; J7030

== ENCOUNTER → 2017-06-04 | Outpatient (CLI) | payer MEDICARE, BC ==
[~2017-06-04] MED LIST changes: +COZAAR50 MG PO; +DEMADEX20 MG PO; +MIRALAX17 GM PO; +MORPHINE SULFAT15 M1 PO; +NORVASC5 MG PO; +NOVOLIN-N100 UNIT/M SUB-Q; +OXYGEN M-15 INH; +PROVENTIL OR V6.7 GM INH
== END | disposition disaster alternative care site (69) ==
LOC: GAMB 09:50
DX: S72.91XA Unspecified fracture of right femur, initial encounter for closed fracture (principal); I11.0 Hypertensive heart disease with heart failure; I50.9 Heart failure, unspecified; J44.9 Chronic obstructive pulmonary disease, unspecified; M79.651 Pain in right thigh; E11.40 Type 2 diabetes mellitus with diabetic neuropathy, unspecified; Z79.4 Long term (current) use of insulin; Z79.891 Long term (current) use of opiate analgesic; Z79.899 Other long term (current) drug therapy; Z79.52 Long term (current) use of systemic steroids; Z88.0 Allergy status to penicillin; Z88.1 Allergy status to other antibiotic agents; Z88.8 Allergy status to other drugs, medicaments and biological substances
CPT/HCPCS: A0422; A0425